=== PATIENT | female | born 1980 | race Caucasian/White ===

== ENCOUNTER 2018-02-27 19:55 | Emergency (ER) | payer OTHER ==
[~2018-02-27] VITALS: Ht 162.6 cm; Wt 65.8 kg
[2018-02-27 20:08] VITALS: BP 122/79
[2018-02-27] MEDS ORDERED: ADDERALL 20 MG20 M1 (20:13)
[2018-02-27] MEDS ORDERED: AFRIN15 ML NASAL (20:28)
[2018-02-27] MEDS ORDERED: PREDNISONE 5 MG5 MG PO (20:29)
[2018-02-27] MEDS ORDERED: AUGMENTIN 875-1 EACH PO (20:29)
== END 2018-02-27 20:35 | disposition home or self-care (01) ==
LOC: M.ERS 19:55
DX: J32.9 Chronic sinusitis, unspecified (principal); F90.9 Attention-deficit hyperactivity disorder, unspecified type; F17.200 Nicotine dependence, unspecified, uncomplicated; Z88.6 Allergy status to analgesic agent; Z88.5 Allergy status to narcotic agent

== ENCOUNTER 2018-04-09 13:11 | Emergency (ER) | payer OTHER ==
[~2018-04-09] VITALS: Ht 162.6 cm; Wt 68.0 kg
[~2018-04-09 13:11] MED LIST: ADDERALL 20 MG20 M1; AFRIN15 ML NASAL; AUGMENTIN 875-1 EACH PO; PREDNISONE 5 MG5 MG PO
[2018-04-09] MEDS ORDERED: TRAZODONE 150150 M1 PO (13:28)
[2018-04-09 13:34] LABS: URINE BILIRUBIN NEGATIVE (Negative); URINE BLOOD TRACE (Negative); URINE CLARITY CLEAR; URINE COLOR YELLOW; URINE GLUCOSE-RANDOM NEGATIVE (Negative); URINE KETONES NEGATIVE (Negative); URINE LEUKOCYTES-REFLEX NEGATIVE (Negative); URINE NITRITE-REFLEX NEGATIVE (Negative); URINE PROTEIN NEGATIVE (Negative); URINE SPECIFIC GRAVITY >= 1.030 (1.005-1.030); URINE UROBILINOGEN 0.2 E.U./dl (0.2-1.0)
[2018-04-09 14:29] VITALS: BP 119/83
== END 2018-04-09 14:30 | disposition home or self-care (01) ==
LOC: M.ERS 13:11
PROVIDERS: Nurse Practitioner Family
DX: R10.2 Pelvic and perineal pain (principal); Z20.2 Contact with and (suspected) exposure to infections with a predominantly sexual mode of transmission; F90.9 Attention-deficit hyperactivity disorder, unspecified type; F42.9 Obsessive-compulsive disorder, unspecified; Z90.89 Acquired absence of other organs; Z88.6 Allergy status to analgesic agent; Z88.5 Allergy status to narcotic agent

== ENCOUNTER 2018-04-11 12:25 | Emergency (ER) | payer OTHER ==
[~2018-04-11] VITALS: Ht 157.5 cm; Wt 59.0 kg
[~2018-04-11 12:25] MED LIST changes: +TRAZODONE 150150 M1 PO
[2018-04-11 13:13] LABS: URINE BILIRUBIN NEGATIVE (Negative); URINE BLOOD NEGATIVE (Negative); URINE CLARITY CLEAR; URINE COLOR YELLOW; URINE GLUCOSE-RANDOM NEGATIVE (Negative); URINE KETONES NEGATIVE (Negative); URINE LEUKOCYTES-REFLEX NEGATIVE (Negative); URINE NITRITE-REFLEX NEGATIVE (Negative); URINE PROTEIN NEGATIVE (Negative); URINE SPECIFIC GRAVITY 1.025 (1.005-1.030); URINE UROBILINOGEN 0.2 E.U./dl (0.2-1.0)
[2018-04-11 13:17] LABS: ABSOLUTE BASOPHILS 0.1 thou/uL (0.0-0.2); ABSOLUTE EOSINOPHILS 0.1 thou/uL (0.0-0.7); BASOPHILS 0.5 %; EOSINOPHILS 0.6 %; HEMATOCRIT 35.7 % (37.0-47.0); HEMOGLOBIN 11.9 gm/dL (12.0-15.0); LYMPHOCYTES 24.7 %; MCH 30.8 pg (26.0-34.0); MCHC 33.4 g/dL (28.0-37.0); MCV 92.3 fL (80.0-100.0); MONOCYTES 8.4 %; MPV 6.4 fl. (7.2-11.1); NUCLEATED RBCS 0 /100WBC; PLATELET COUNT* 369 thou/uL (150-400); POLYS 65.8 %; RBC 3.87 mil/uL (4.20-5.00); RDW-CV 13.3 % (10.5-14.5); WBC 12.2 thou/uL (4.0-11.0)
[2018-04-11 13:27] LABS: CALCIUM 8.2 mg/dL (8.5-10.1); CREATININE 0.7 mg/dL (0.6-1.3); POTASSIUM 3.9 mmol/L (3.5-5.1)
[2018-04-11 13:31] LABS: ALBUMIN 3.1 g/dL (3.4-5.0); TOTAL BILIRUBIN 0.2 mg/dL (<0.1-1.0); TOTAL PROTEIN 6.2 g/dL (6.4-8.2)
[2018-04-11 15:27] VITALS: BP 108/77
[2018-04-11] MEDS ORDERED: OMEPRAZOLE 20 M20 M1 PO (15:32)
[2018-04-11] MEDS ORDERED: ACETAMINOPHEN-1 EAC1 PO (15:32)
[2018-04-11] MEDS ORDERED: CARAFATE 1 GM TA1 G1 PO (15:32)
[2018-04-11] MEDS ORDERED: PHENERGAN 25 MG25 M1 PO (15:32)
== END 2018-04-11 15:38 | disposition home or self-care (01) ==
LOC: M.ERS 12:25
PROVIDERS: Physician Assistant
DX: K92.2 Gastrointestinal hemorrhage, unspecified (principal); R19.7 Diarrhea, unspecified; F90.9 Attention-deficit hyperactivity disorder, unspecified type; F42.9 Obsessive-compulsive disorder, unspecified; F17.200 Nicotine dependence, unspecified, uncomplicated; Z90.89 Acquired absence of other organs; Z88.6 Allergy status to analgesic agent; Z88.5 Allergy status to narcotic agent

== ENCOUNTER → 2018-10-29 | Emergency (ER) | payer OTHER ==
[~2018-10-29] VITALS: Ht 162.6 cm; Wt 72.6 kg
[~2018-10-29] MED LIST changes: +ACETAMINOPHEN-1 EAC1 PO; +CARAFATE 1 GM TA1 G1 PO; +MEDROLDOSEPACK PO; +OMEPRAZOLE 20 M20 M1 PO; +PHENERGAN 25 MG25 M1 PO
[2018-10-29 12:24] LABS: INFLUENZA A ANTIGEN None Detected (None Detect); INFLUENZA B ANTIGEN None Detected (None Detect)
[2018-10-29 12:35] VITALS: BP 128/90
== END ==
LOC: M.ERS 11:32
PROVIDERS: Physician Assistant
DX: R05 Cough (principal); F90.9 Attention-deficit hyperactivity disorder, unspecified type; Z88.5 Allergy status to narcotic agent; Z88.6 Allergy status to analgesic agent

== ENCOUNTER 2019-02-28 16:04 | Emergency (ER) | payer OTHER ==
[~2019-02-28] VITALS: Ht 162.6 cm; Wt 74.8 kg
[2019-02-28 16:59] LABS: URINE BILIRUBIN NEGATIVE (Negative); URINE BLOOD TRACE (Negative); URINE CLARITY CLEAR; URINE COLOR YELLOW; URINE GLUCOSE-RANDOM NEGATIVE (Negative); URINE KETONES NEGATIVE (Negative); URINE LEUKOCYTES NEGATIVE (Negative); URINE NITRITE NEGATIVE (Negative); URINE PROTEIN NEGATIVE (Negative); URINE UROBILINOGEN 0.2 E.U./dl (0.2-1.0)
[2019-02-28 17:10] LABS: ABSOLUTE BASOPHILS 0.1 thou/uL (0.0-0.2); ABSOLUTE EOSINOPHILS 0.1 thou/uL (0.0-0.7); ABSOLUTE LYMPHOCYTES 2.2 thou/uL (0.8-5.3); ABSOLUTE MONOCYTES 1.1 thou/uL (0.0-1.2); ABSOLUTE NEUTROPHILS 8.8 thou/uL (1.6-8.1); BASOPHILS 0.8 %; EOSINOPHILS 0.5 %; HEMATOCRIT 41.1 % (37.0-47.0); HEMOGLOBIN 13.9 gm/dL (12.0-15.0); LYMPHOCYTES 18.3 %; MCH 30.5 pg (26.0-34.0); MCHC 33.7 g/dL (28.0-37.0); MCV 90.4 fL (80.0-100.0); MONOCYTES 8.8 %; MPV 6.6 fl. (7.2-11.1); NUCLEATED RBCS 0 /100WBC; PLATELET COUNT* 408 thou/uL (150-400); POLYS 71.6 %; RBC 4.55 mil/uL (4.20-5.00); RDW-CV 13.1 % (10.5-14.5); WBC 12.3 thou/uL (4.0-11.0)
[2019-02-28 17:16] LABS: CALCIUM 8.4 mg/dL (8.5-10.1); CREATININE 0.8 mg/dL (0.6-1.3); POTASSIUM 3.8 mmol/L (3.5-5.1)
[2019-02-28 17:21] LABS: ALBUMIN 3.8 g/dL (3.4-5.0); TOTAL BILIRUBIN 0.6 mg/dL (<0.1-1.0)
[2019-02-28 18:52] VITALS: BP 129/81
== END 2019-02-28 18:53 | disposition home or self-care (01) ==
LOC: M.ERS 16:04
PROVIDERS: Nurse Practitioner Family
DX: N83.202 Unspecified ovarian cyst, left side (principal); F90.9 Attention-deficit hyperactivity disorder, unspecified type; F42.9 Obsessive-compulsive disorder, unspecified; N80.9 Endometriosis, unspecified; Z88.6 Allergy status to analgesic agent; Z88.8 Allergy status to other drugs, medicaments and biological substances

== ENCOUNTER 2019-05-24 21:30 | Emergency (ER) | payer OTHER ==
[~2019-05-24] VITALS: Ht 165.1 cm; Wt 74.8 kg
[2019-05-24] MEDS ORDERED: DOXYCYCLINE 10100 MG PO (21:57)
[2019-05-24 22:07] VITALS: BP 144/94
== END 2019-05-24 22:07 | disposition home or self-care (01) ==
LOC: M.ERS 21:30
DX: T63.301A Toxic effect of unspecified spider venom, accidental (unintentional), initial encounter (principal); F17.210 Nicotine dependence, cigarettes, uncomplicated; F90.9 Attention-deficit hyperactivity disorder, unspecified type; Z88.5 Allergy status to narcotic agent; Z88.6 Allergy status to analgesic agent; N80.9 Endometriosis, unspecified; Y92.89 Other specified places as the place of occurrence of the external cause

== ENCOUNTER 2019-12-11 13:16 | Emergency (ER) | payer OTHER ==
[~2019-12-11] VITALS: Ht 162.6 cm; Wt 77.1 kg
[~2019-12-11 13:16] MED LIST changes: +DOXYCYCLINE 10100 MG PO
[2019-12-11 14:00] LABS: URINE BILIRUBIN NEGATIVE (Negative); URINE BLOOD 2+ (Negative); URINE CLARITY CLEAR; URINE COLOR YELLOW; URINE GLUCOSE-RANDOM NEGATIVE (Negative); URINE KETONES NEGATIVE (Negative); URINE LEUKOCYTES-REFLEX NEGATIVE (Negative); URINE NITRITE-REFLEX NEGATIVE (Negative); URINE PROTEIN TRACE (Negative); URINE SPECIFIC GRAVITY >= 1.030 (1.005-1.030); URINE UROBILINOGEN 0.2 E.U./dl (0.2-1.0)
[2019-12-11 14:25] LABS: ABSOLUTE BASOPHILS 0.1 thou/uL (0.0-0.2); ABSOLUTE EOSINOPHILS 0.2 thou/uL (0.0-0.7); ABSOLUTE LYMPHOCYTES 1.1 thou/uL (0.8-5.3); ABSOLUTE MONOCYTES 0.9 thou/uL (0.0-1.2); ABSOLUTE NEUTROPHILS 3.5 thou/uL (1.6-8.1); BASOPHILS 0.9 %; EOSINOPHILS 2.9 %; HEMOGLOBIN 14.2 gm/dL (12.0-15.0); LYMPHOCYTES 18.3 %; MCH 30.7 pg (26.0-34.0); MCHC 33.8 g/dL (28.0-37.0); MCV 90.8 fL (80.0-100.0); MONOCYTES 16.2 %; MPV 6.8 fl. (7.2-11.1); NUCLEATED RBCS 0 /100WBC; PLATELET COUNT* 321 thou/uL (150-400); POLYS 61.7 %; RBC 4.62 mil/uL (4.20-5.00); RDW-CV 13.5 % (10.5-14.5); WBC 5.7 thou/uL (4.0-11.0)
[2019-12-11 14:26] LABS: BACTERIA-REFLEX 1-9 Few /HPF (None Seen); CASTS None Seen /LPF (None Seen); CRYSTALS None Seen /LPF (None Seen); SQUAMOUS >10 Many /LPF (0-3); URINE RBC 0-2 Rare /HPF (0-2); URINE WBC-REFLEX 0-5 Rare /HPF (0-5)
[2019-12-11 14:35] LABS: CALCIUM 8.7 mg/dL (8.5-10.1); CREATININE 0.9 mg/dL (0.6-1.3)
[2019-12-11 14:37] LABS: INFLUENZA A ANTIGEN Negative (Negative); INFLUENZA B ANTIGEN Negative (Negative)
[2019-12-11 14:40] LABS: ALBUMIN 3.1 g/dL (3.4-5.0); TOTAL BILIRUBIN 0.2 mg/dL (<0.1-1.0); TOTAL PROTEIN 7.8 g/dL (6.4-8.2)
[2019-12-11 15:10] VITALS: BP 125/75
== END 2019-12-11 15:11 | disposition home or self-care (01) ==
LOC: M.ERS 13:16
PROVIDERS: Physician Assistant
DX: T78.49XA Other allergy, initial encounter (principal); R05 Cough; N89.8 Other specified noninflammatory disorders of vagina; Z77.098 Contact with and (suspected) exposure to other hazardous, chiefly nonmedicinal, chemicals; N80.9 Endometriosis, unspecified; Z88.5 Allergy status to narcotic agent; Z88.6 Allergy status to analgesic agent; Y92.89 Other specified places as the place of occurrence of the external cause

== ENCOUNTER 2020-03-17 18:20 | Emergency (ER) | payer OTHER ==
[~2020-03-17] VITALS: Ht 162.6 cm; Wt 83.9 kg
[2020-03-17] MEDS ORDERED: KEFLEX500 M1 PO (19:49)
[2020-03-17 20:10] VITALS: BP 122/79
== END 2020-03-17 20:10 | disposition home or self-care (01) ==
LOC: M.ERS 18:20
DX: I88.9 Nonspecific lymphadenitis, unspecified (principal); F17.200 Nicotine dependence, unspecified, uncomplicated; Z88.6 Allergy status to analgesic agent

== ENCOUNTER 2020-11-09 16:59 | Inpatient (IN) | payer OTHER ==
[~2020-11-09] VITALS: Ht 162.6 cm; Wt 83.9 kg
--- NOTE | ~2020-11-09 | PROC ---
[address] [address] PROCEDURE REPORT Name: FRANCIA CHILDS Room: [address] IN M.R.#: [id number] Admission: 11/09/20 Attend Phys: Melly Moran Discharge: 11/12/20 Date of : 80 Report #: [id number] THIS REPORT FOR: cc: FAM - No family physician/PCP FAM - No family physician/PCP ~ [facility],Medical Records Staff For GI report, please see the Provation report in Perceptive 7 content. By: [id number] Records Staff [facility] /[place]
[~2020-11-09 16:59] MED LIST changes: +DESYREL150 MG PO; +KEFLEX500 M1 PO; -TRAZODONE 150150 M1 PO
[2020-11-09 17:22] VITALS: BP 129/75
[2020-11-09 18:24] LABS: URINE BILIRUBIN NEGATIVE (Negative); URINE BLOOD TRACE (Negative); URINE CLARITY SL CLOUDY; URINE COLOR YELLOW; URINE GLUCOSE-RANDOM NEGATIVE (Negative); URINE KETONES NEGATIVE (Negative); URINE LEUKOCYTES-REFLEX NEGATIVE (Negative); URINE NITRITE-REFLEX NEGATIVE (Negative); URINE PROTEIN NEGATIVE (Negative); URINE SPECIFIC GRAVITY 1.025 (1.005-1.030); URINE UROBILINOGEN 0.2 E.U./dl (0.2-1.0)
[2020-11-09 18:28] LABS: BACTERIA-REFLEX 1-9 Few /HPF (None Seen); CASTS None Seen /LPF (None Seen); MUCUS >6 Heavy strn/LPF (None Seen); SQUAMOUS >10 Many /LPF (0-3); URINE RBC 0-2 Rare /HPF (0-2); URINE WBC-REFLEX None Seen /HPF (0-5)
[2020-11-09 18:29] LABS: CRYSTALS None Seen /LPF (None Seen)
[2020-11-09 18:39] LABS: ABSOLUTE BASOPHILS 0.1 thou/uL (0.0-0.2); ABSOLUTE EOSINOPHILS 0.2 thou/uL (0.0-0.7); ABSOLUTE LYMPHOCYTES 3.2 thou/uL (0.8-5.3); ABSOLUTE NEUTROPHILS 7.2 thou/uL (1.6-8.1); BASOPHILS 0.8 %; EOSINOPHILS 1.7 %; HEMATOCRIT 42.1 % (37.0-47.0); HEMOGLOBIN 13.9 gm/dL (12.0-15.0); MCH 29.6 pg (26.0-34.0); MCV 89.7 fL (80.0-100.0); MONOCYTES 8.7 %; MPV 6.7 fl. (7.2-11.1); NUCLEATED RBCS 0 /100WBC; PLATELET COUNT* 425 thou/uL (150-400); POLYS 61.8 %; RDW-CV 13.2 % (10.5-14.5); WBC 11.7 thou/uL (4.0-11.0)
[2020-11-09 18:45] LABS: CALCIUM 8.5 mg/dL (8.5-10.1); CREATININE 0.8 mg/dL (0.6-1.3); POTASSIUM 3.9 mmol/L (3.5-5.1)
[2020-11-09 18:50] LABS: ALBUMIN 3.4 g/dL (3.4-5.0); TOTAL BILIRUBIN 0.2 mg/dL (<0.1-1.0); TOTAL PROTEIN 6.9 g/dL (6.4-8.2)
[2020-11-09 23:40] VITALS: BP 132/7
[2020-11-10] VITALS: BP 128/76
--- NOTE | 2020-11-10 05:19 | NUR ---
PATIENT SLEPT WELL DURING THIS SHIFT. PT UP AD JOSEPH TO BATHROOM. PT WITH SALINE LOCK IN LT AC. ZOSYN INFUSING AT THIS TIME. PT DENIES PAIN. NO LOOSE STOOLS NOTED. WILL CONTINUE TO MONITOR.
[2020-11-10 07:25] VITALS: BP 136/62
[2020-11-10 14:57] LABS: CREATININE 0.9 mg/dL (0.6-1.3); POTASSIUM 3.6 mmol/L (3.5-5.1)
[2020-11-10 15:00] LABS: MAGNESIUM 2.1 mg/dL (1.8-2.4); PHOSPHORUS* 3.2 mg/dL (2.5-4.9)
[2020-11-10 16:00] VITALS: BP 121/89
--- NOTE | 2020-11-10 17:17 | NUR ---
PT REMAINED ALERT AND ORIENTED. PT STARTED BOWEL PREP. NEW IV STARTED. PROCEDURE TOMORROW. HOURLY ROUNDING COMPLETED.
[2020-11-10 20:00] VITALS: BP 121/78
--- NOTE | 2020-11-11 04:55 | NUR ---
PT A&O, VSS ON RA. NO C/O PAIN. ABX GIVEN ORDERED. BOWEL PREP DONE, CLEAR STOOL NOTED. NPO SINCE MIDNIGHT. UP INDEPENDENTLY. WILL CONTINUE TO MONITOR.
[2020-11-11 06:20] LABS: ABSOLUTE BASOPHILS 0.1 thou/uL (0.0-0.2); ABSOLUTE EOSINOPHILS 0.3 thou/uL (0.0-0.7); ABSOLUTE LYMPHOCYTES 2.2 thou/uL (0.8-5.3); ABSOLUTE MONOCYTES 0.7 thou/uL (0.0-1.2); ABSOLUTE NEUTROPHILS 5.2 thou/uL (1.6-8.1); BASOPHILS 0.6 %; EOSINOPHILS 3.3 %; HEMATOCRIT 38.8 % (37.0-47.0); LYMPHOCYTES 26.1 %; MCH 29.7 pg (26.0-34.0); MCHC 33.4 g/dL (28.0-37.0); MCV 89.1 fL (80.0-100.0); MONOCYTES 8.3 %; MPV 6.7 fl. (7.2-11.1); NUCLEATED RBCS 0 /100WBC; PLATELET COUNT* 393 thou/uL (150-400); POLYS 61.7 %; RBC 4.36 mil/uL (4.20-5.00); RDW-CV 13.2 % (10.5-14.5); WBC 8.4 thou/uL (4.0-11.0)
[2020-11-11 06:33] LABS: CALCIUM 8.4 mg/dL (8.5-10.1); CREATININE 0.8 mg/dL (0.6-1.3); POTASSIUM 3.8 mmol/L (3.5-5.1)
[2020-11-11 08:00] VITALS: BP 110/69
--- NOTE | 2020-11-11 10:00 | NUR ---
SPOKE WITH PT.IN ROOM. HER CHILDREN LIVE WITH HER IN AN APT. PT.IS UNEMPLOYED. TO BE SCREENED BY MED ASSIST. SHE SAID SHE USES NO DME. NO HX OF HH OR SNF. SHOULD DISCHARGE WITHOUT CM NEEDS.
[2020-11-11 16:08] VITALS: BP 119/80
--- NOTE | 2020-11-11 17:46 | NUR ---
PATIENT CURRENTLY SITTING UP IN BED EATING DINNER. PATIENT HAS REMAINED A&OX4, PLEASANT AND COOPERATIVE WITH CARES THIS SHIFT. PATIENT HAD EGD/COLONOSCOPY THIS SHIFT AND HAS TOLERATED FOOD SINCE LUNCH AND HAS DENIED ANY PAIN/N/V. PATIENT IS UP AD JOSEPH. IV LOCATED IN RIGHT FOREARM AND IS SALINE LOCKED. CALL LIGHT AND FREQUENTLY USED ITEMS WITHIN REACH.
[2020-11-11 20:00] VITALS: BP 131/86
--- NOTE | 2020-11-12 06:18 | NUR ---
ASSUMED PT'S CARE AT ABOUT 1900. ALERT AND ORIENTED. VSS ON RA. TRAZODONE GIVEN PER EMAR. PT RATED PAIN DURING ASSESSMENT A 5 BUT DIDNT WANT ANT MEDS FOR IT. PT SLEPT WELL THIS SHIFT. ABLE TO AMBULATES INDEPENDENTLY. CALL LIGHT WITHIN REACH. PT VOICED ANTCIPATING DC TO HOME TODAY. WILL CONTINUE TO MONITOR.
[2020-11-12 08:08] VITALS: BP 114/71
[2020-11-12] MEDS ORDERED: OMEPRAZOLE40 MG PO (11:07)
[2020-11-12] MEDS ORDERED: MIRALAX119 GM PO (11:07)
[2020-11-12 12:34] VITALS: BP 114/71
[2020-11-12 13:18] VITALS: BP 114/71
--- NOTE | 2020-11-12 13:20 | NUR ---
PATIENT GIVEN DISCHARGE INSTRUCTIONS AND MEDICATIONS REVIEWED; ALSO GIVEN SCRIPTS FOR MIRALAX AND OMEPRAZOLE ALONG WITH INFORMATION SHEETS. PATIENT DENIES PAIN/QUESTIONS/CONCERNS PRIOR TO DISCHARGE. PATIENT LEFT UNIT WITH PERSONAL BELONGINGS VIA W/C ACCOMPANIED BY NURSING STAFF.
--- NOTE | 2020-11-16 12:06 | PATH ---
[facility] [address] [place] [address] PATHOLOGY RPT PROCEDURE Name: CHILDSANUPAMA ZAHRAA Room: [address] IN M.R.#: [id number] Admission: 11/09/20 Date of : 80 Discharge: 11/12/20 Report #: [id number] Path Case #: [id number] [facility] Accession Number: [id number] . 01 Material submitted: . PART A: sigmoid colon - PROXIMAL SIGMOID POLYP 30 CM. Modifiers: proximal PART B: sigmoid colon - MID SIGMOID COLON POLYP. Modifiers: mid . 01 Clinical history: . COLITIS, PROCTITIS, HISTORY OF RECTAL BLEEDING . A, B: HOT SNARE . 02 Diagnosis: A. Proximal sigmoid polyp 30 cm (hot snare): - Hyperplastic polyp. . B. Mid sigmoid colon polyp (hot snare): - Hyperplastic polyp. . (LAURENCE:mmcarmenza; 11/13/2020) [facility] 11/13/2020 1643 Local . 02 Electronically signed: . Esequiel Monahan MD, Pathologist NPI- [id number] . 01 Gross description: . A. The specimen is received in formalin, labeled "Anupama Childs, proximal sigmoid polyp". Received are two segments of pale wesley soft tissue ranging in size from 0.5 to 1.1 cm in maximum dimensions. The surgical margins are inked and each segment is bisected. The specimen is submitted entirely in cassette A1. . B. The specimen is received in formalin, labeled "Anupama Childs, mid sigmoid polyp". Received is a segment of pale wesley soft tissue measuring 0.6 cm in maximum dimensions. The surgical margin is inked and the segment is bisected. The specimen is submitted entirely in cassette B1. (CAA; 11/12/2020) [facility]QA 11/12/2020 1412 Local . 02 Pathologist provided ICD-10: K63.5 . 02 CPT . 762465, [id number] Specimen Comment: A courtesy copy of this report has been sent to [phone], [place] [address] PATHOLOGY RPT PROCEDURE Name: ANUPAMA CHILDS Room: [address] IN M.R.#: [id number] Admission: 11/09/20 Date of : 80 Discharge: 11/12/20 Report #: [id number] Path Case #: [id number] Specimen Comment: [id number] Specimen Comment: Report sent to / DR HERNANDEZ Performed at: [address], [place], [place] [id number] MD Rob Fischer MD Phone: [phone] Performed at: 02 [facility] [address], [place], [place] [id number] MD Esequiel Monahan MD Phone: [phone]
== END 2020-11-12 13:00 | disposition home or self-care (01) | DRG 377 ==
LOC: M.ERS 16:59 → M.TBA-ER 21:15 → M.3W 11-10 01:19
PROVIDERS: Internal Medicine; Nurse Practitioner Family; ADMIT Internal Medicine; ATTEND Internal Medicine
PROC: 0DBN8ZZ Excision of Sigmoid Colon, Via Natural or Artificial Opening Endoscopic (ICD-10-PCS; principal; 2020-11-11)
PROC: 0D758ZZ Dilation of Esophagus, Via Natural or Artificial Opening Endoscopic (ICD-10-PCS; principal; 2020-11-11)
DX: K92.2 Gastrointestinal hemorrhage, unspecified (principal); K21.01 Gastro-esophageal reflux disease with esophagitis, with bleeding; K62.6 Ulcer of anus and rectum; K52.9 Noninfective gastroenteritis and colitis, unspecified; K62.89 Other specified diseases of anus and rectum; F12.90 Cannabis use, unspecified, uncomplicated; K59.00 Constipation, unspecified; F90.9 Attention-deficit hyperactivity disorder, unspecified type; F42.9 Obsessive-compulsive disorder, unspecified; N80.9 Endometriosis, unspecified; K21.9 Gastro-esophageal reflux disease without esophagitis; Z20.822 Contact with and (suspected) exposure to COVID-19; K44.9 Diaphragmatic hernia without obstruction or gangrene; K64.4 Residual hemorrhoidal skin tags; K63.5 Polyp of colon; Z88.6 Allergy status to analgesic agent; Z88.8 Allergy status to other drugs, medicaments and biological substances; Z79.899 Other long term (current) drug therapy